=== PATIENT | female | born 2000 | race Caucasian/White ===

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

== ENCOUNTER → 2021-10-23 | Outpatient (REF) | payer OTHER ==
[2021-10-26 11:55] LABS: GC DNA AMPLIFICATION NEGATIVE (NEGATIVE)
== END ==
LOC: M SFHCWAGY 10:07
PROVIDERS: ATTEND Advanced Practice Midwife
DX: Z01.419 Encounter for gynecological examination (general) (routine) without abnormal findings (principal); Z11.3 Encounter for screening for infections with a predominantly sexual mode of transmission

== ENCOUNTER → 2023-07-07 | Outpatient (CLI) | payer OTHER ==
[2023-07-07 19:11] LABS: HIV 1&2 SCREEN NEGATIVE (NEGATIVE)
[2023-07-07 19:19] LABS: HEPATITIS C VIRUS ABY INDEX 0.04 INDEX (<0.8)
== END ==
LOC: M PLALAB 14:49
PROVIDERS: ATTEND Advanced Practice Midwife
DX: Z12.4 Encounter for screening for malignant neoplasm of cervix (principal); Z11.3 Encounter for screening for infections with a predominantly sexual mode of transmission
CPT/HCPCS: 36415; 86780; 86803; 87389; G0123

== ENCOUNTER → 2024-07-11 | Outpatient (CLI) | payer OTHER ==
[2024-07-11 19:51] LABS: HIV 1&2 SCREEN NEGATIVE (NEGATIVE)
[2024-07-11 19:54] LABS: Trichomonas vaginalis (AMP) NOT DETECTED (NEGATIVE)
[2024-07-11 19:59] LABS: HEPATITIS C VIRUS ABY INDEX < 0.02 INDEX (<0.8)
[2024-07-11 20:17] LABS: GC DNA AMPLIFICATION NEGATIVE (NEGATIVE)
== END ==
LOC: M PLALAB 16:15
PROVIDERS: ATTEND Advanced Practice Midwife
DX: Z01.419 Encounter for gynecological examination (general) (routine) without abnormal findings (principal); Z11.3 Encounter for screening for infections with a predominantly sexual mode of transmission

== ENCOUNTER → 2024-08-07 | Outpatient (CLI) | payer OTHER | LOC: M WHC 10:00 | PROVIDERS: ATTEND Advanced Practice Midwife | DX: N63.21 Unspecified lump in the left breast, upper outer quadrant (principal) ==

== ENCOUNTER → 2025-07-31 | Outpatient (REF) | payer OTHER ==
[2025-07-31 17:36] LABS: GC DNA AMPLIFICATION NEGATIVE (NEGATIVE)
== END ==
LOC: M SFHCWAGY 15:31
PROVIDERS: ATTEND Advanced Practice Midwife
DX: Z11.3 Encounter for screening for infections with a predominantly sexual mode of transmission (principal)

== ENCOUNTER 2025-09-02 09:20 | Emergency (ER) | payer OTHER ==
[~2025-09-02] VITALS: Ht 167.6 cm; Wt 68.6 kg
[2025-09-02] MEDS: IBUPROFEN 600 MG TAB PO ONE (10:59)
[2025-09-02 11:54] VITALS: BP 108/62; TEMP 98.2; O2SAT 99
[2025-09-02] MEDS: CHLORASEPTIC SPRAY MT PRN (12:18)
== END 2025-09-02 12:22 | disposition home or self-care (01) ==
LOC: M ED 09:20
DX: J06.0 Acute laryngopharyngitis (principal)

== ENCOUNTER → 2025-09-16 | Outpatient (CLI) | payer OTHER | LOC: M WHC 12:50 | PROVIDERS: ATTEND Advanced Practice Midwife | DX: D24.2 Benign neoplasm of left breast (principal) ==